=== PATIENT | male | born 1955 | race African-American/Black ===

== ENCOUNTER 2020-05-21 03:41 | Inpatient (IN) | payer OTHER ==
[2020-05-21] VITALS (16 sets, daily range): BP systolic 58–142; BP diastolic 43–95
[~2020-05-21] VITALS: Ht 172.7 cm; Wt 66.7 kg
--- NOTE | 2020-05-21 03:42 | NUR ---
ALANIS 85 FROM [facility] FOR REOPENED SCALP LACERATION W/ STAPLE S/P FOUND ON THE FLOOR; pt to bed 5, pt alert, -sob, +trache, on cool aerosol, nad noted +bleeding on laceration site, vss. pending er provider marium
--- NOTE | 2020-05-21 03:55 | NUR ---
pt taken to ct
--- NOTE | 2020-05-21 05:29 | NUR ---
DR. DENG CALLED LEFT VOICEMAIL
[2020-05-21] MEDS ORDERED: IV NS 0.9% 500 ML BAG IV ONE (05:30)
[2020-05-21 05:58] LABS: BASOPHILS % (AUTO) 0.3 % (0.0-2.0); EOSINOPHILS % (AUTO) 0.2 % (0.0-6.0); HEMATOCRIT 35 % (39-51); HEMOGLOBIN 10.4 g/dL (13.5-17.5); LYMPHOCYTES # (AUTO) 1.7 /CMM (0.8-4.8); LYMPHOCYTES % (AUTO) 15.6 % (20.0-44.0); MEAN CORPUSCULAR HGB CONC 30 g/dl (31.0-36.0); MEAN CORPUSCULAR VOLUME 81 fL (80-96); MONOCYTES # (AUTO) 0.9 /CMM (0.1-1.30); MONOCYTES % (AUTO) 8.2 % (2.0-12.0); NEUTROPHILS # (AUTO) 8.3 /CMM (1.8-8.9); NEUTROPHILS % (AUTO) 75.7 % (43.0-81.0); PLATELET COUNT (AUTO) 278 /CMM (150-450); RED BLOOD CELL COUNT(AUTO) 4.26 MIL/uL (4.5-6.0); WHITE BLOOD COUNT (AUTO) 10.9 K/uL (4.3-11.0)
--- NOTE | 2020-05-21 06:04 | NUR ---
DR. DENG CALLED LEFT VOICEMAIL
[2020-05-21 06:12] LABS: ALANINE AMINOTRANSFERASE 27 U/L (12-78); ALKALINE PHOSPHATASE 226 U/L (46-116); ASPARTATE AMINOTRANSFERASE 35 U/L (15-37); BILIRUBIN,DIRECT 0.4 mg/dL (0.0-0.2); BILIRUBIN,TOTAL 0.5 mg/dL (0.2-1.0); CALCIUM, SERUM 9.4 mg/dL (8.5-10.1); CARBON DIOXIDE 35 mmol/L (21-32); CHLORIDE 98 mmol/L (98-107); CREATININE 1.2 mg/dL (0.6-1.3); GLUCOSE 117 mg/dL (74-106); LIPASE 110 U/L (73-393); POTASSIUM 3.9 mmol/L (3.5-5.1); SODIUM SERUM 138 mmol/L (136-145); TOTAL PROTEIN, SERUM 8.2 g/dL (6.4-8.2); UREA NITROGEN, BLOOD 25 mg/dL (7-18)
[2020-05-21] MEDS ORDERED: LEVETIRACETAM (500MG) 500 MG/5 ML VIAL IV ONE (06:14)
[2020-05-21] MEDS ORDERED: LEVETIRACETAM (500MG) 500 MG in IV NS 0.9% 100 ML IV ONE (06:30)
--- NOTE | 2020-05-21 06:32 | NUR ---
REQUEST FOR RELEASE IF INFO WAS FAXED TO [facility]
--- NOTE | 2020-05-21 07:19 | NUR ---
report given to eugenio montanez for marimar
[2020-05-21] MEDS ORDERED: PROTHROMBIN COMPLEX CONCENTR 500 UNIT VIAL IV ONE (07:30)
--- NOTE | 2020-05-21 07:45 | NUR ---
patient resting in bed, responsive to tactile stimuli, moving around. Vitals stable.
[2020-05-21] MEDS ORDERED: LEVETIRACETAM (500MG) 500 MG in IV NS 0.9% 100 ML IV SCH (08:00)
--- NOTE | 2020-05-21 08:09 | NUR ---
[facility] OFFICE, WILL CALL BACK TO SPEAK TO DR. LIANG
--- NOTE | 2020-05-21 08:13 | NUR ---
PT COVID TEST RESULT: NEGATIVE
--- NOTE | 2020-05-21 08:51 | NUR ---
ROOM VOVSETAL=[id number]
--- NOTE | 2020-05-21 09:21 | NUR ---
SPOKE WITH [facility]IN[facility]ORATORY AIDE, RECEIVED A VERBAL AUTHORIZATION FOR PATIENT TO STAY.
--- NOTE | 2020-05-21 09:24 | NUR ---
ATTEMPTED TO GIVE REPORT TO ICU, STS NURSE IS NOT AVAILABLE FOR REPORT.
--- NOTE | 2020-05-21 09:41 | NUR ---
REPORT GIVEN TO CALVIN PENA.
--- NOTE | 2020-05-21 10:00 | NUR ---
RN OPENING NOTES PATIENT BROUGHT UP FROM ER VIA GURNEY. PATIENT IN STABLE CONDITION AT THE MOMENT. REPORT RECEIVED FROM JEAN KUMAR. PATIENT ADMITTED FOR SUBDURAL HEMATOMA CAUSED BY A FALL. NO SIGNS AND SYMPTOMS OF A STROKE NOTED. PATIENT IS ON 5L O2 VIA TRACH COLLAR, TOLERATING WELL, O2 SATURATION AT 100%. VITAL SIGNS ARE STABLE, BP 111/88, TEMP OF 97.5, A FIB ON THE MONITOR WITH HR OF 95, RESPIRATIONS 16, EVEN AND UNLABORED. PATIENT IS A/O X1, OPENS EYES, NON VERBAL, PER FAMILY THIS IS PATIENTS BASELINE. PATIENT HAS A G-TUBE, INTACT, PATENT, AND FLUSHED WELL. HERNIA NOTED ON PATIENTS ABDOMEN, MD IS AWARE. SKIN ISSUES ARE NOTED AND DOCUMENTED IN THE ADMISSION PACKET, PATIENT IS CURRENTLY KEPT NPO. NO FEEDING RUNNING AT THE MOMENT. IV ACCESS ON LFA #18 AND RFA #20, INTACT, PATENT AND FLUSHES WELL, NO SIGNS OF INFILTRATION NOTED. PATIENT SAFETY IS MAINTAINED, CALL LIGHT WITHIN REACH, FALL RISK MEASURES IN PLACE, BED LOCKED LOWERED AND ARMED. WILL CONTINUE TO MONITOR CLOSELY.
--- NOTE | 2020-05-21 10:04 | NUR ---
PATIENT TRANSFERRED TO ROOM 259 VIA ACLS PROTOCOL, ENDORSED TO CALVIN PENA.
[2020-05-21] MEDS ORDERED: MAGN400O6 GT (10:12)
[2020-05-21] MEDS ORDERED: ALBU6.7H9 IH (10:12)
[2020-05-21] MEDS ORDERED: POLY17PO4 GT (10:12)
[2020-05-21] MEDS ORDERED: DOCU-141 GT (10:12)
[2020-05-21] MEDS ORDERED: FERR325T23 GT (10:12)
[2020-05-21] MEDS ORDERED: ALBU8.5H8 INH (10:12)
[2020-05-21] MEDS ORDERED: ACET325T53 GT (10:12)
[2020-05-21] MEDS ORDERED: NA P133E RC (10:12)
[2020-05-21] MEDS ORDERED: LACT-96 (10:12)
[2020-05-21] MEDS ORDERED: APIX5TAB GT (10:12)
[2020-05-21] MEDS ORDERED: LEVE100S GT (10:12)
[2020-05-21] MEDS ORDERED: PHEN100C4 GT (10:12)
[2020-05-21] MEDS ORDERED: MIRT15TA GT (10:12)
[2020-05-21] MEDS ORDERED: FURO-144 GT (10:12)
--- NOTE | 2020-05-21 10:50 | NUR ---
RT PT NEWLY ADMITTED W/ TRACH. PT HOOKED UP ON O2. AMBU BAG AND SPARE TRACH PLACED BEDSIDE. WILL CONTINUE TO MONITOR.
[2020-05-21] MEDS ORDERED: ACETAMINOPHEN 650 MG/20.3 ML UDC GT PRN (12:00)
--- NOTE | 2020-05-21 12:00 | NUR ---
RN NOTE SPOKE TO MD REGARDING REGARDING THE PATIENT DIAGNOSIS. ADMITTING DIAGNOSIS IS TRAUMA RELATED AND NOT A STROKE. REPEAT CT SCAN IS ORDERED FOR TOMORROW MORNING. SAFETY MAINTAINED, CALL LIGHT WITHIN REACH, WILL CONTINUE TO MONITOR CLOSELY.
[2020-05-21] MEDS ORDERED: NA PHOS,M-B/NA PHOS,DI-BA 1 EA ENEMA RC PRN (12:30)
[2020-05-21] MEDS ORDERED: MAGNESIUM HYDROXIDE 30 ML UDC GT PRN (12:30)
[2020-05-21] MEDS ORDERED: ACETAMINOPHEN 325 MG TABLET PO PRN (12:30)
[2020-05-21] MEDS ORDERED: POLYETHYLENE GLYCOL 3350 17 GM POWD.PACK GT PRN (12:30)
[2020-05-21] MEDS ORDERED: ONDANSETRON HCL/PF 4 MG/2 ML VIAL IVP PRN (12:30)
[2020-05-21] MEDS: PANTOPRAZOLE 40 MG VIAL IV SCH (12:40)
[2020-05-21] MEDS: IV NS 0.9% 1,000 ML IV PRN (12:43)
[2020-05-21] MEDS: ALBUTEROL FS 2.5 MG/0.5 ML VIAL.NEB NEB SCH ×2 (13:30→20:06)
[2020-05-21] MEDS ORDERED: ALBUTEROL FS 2.5 MG/0.5 ML VIAL.NEB NEB PRN (13:30)
--- NOTE | 2020-05-21 14:00 | NUR ---
RN NOTE PATIENT ATTEMPTED TO GET OUT OF BED, BED ALARM WENT OFF, PATIENT WAS DANGLING FEET OFF THE BED WHEN I WALKED IN TO THE ROOM. PLACED PATIENT BACK INTO THE BED, BED LOCKED, LOWERED, AND ALARM RESET. SAFETY MAINTAINED, CALL LIGHT WITHIN REACH, WILL CONTINUE TO MONITOR CLOSELY .
[2020-05-21] MEDS: FUROSEMIDE 40 MG TABLET GT SCH (16:34)
[2020-05-21] MEDS: DOCUSATE SODIUM 100 MG CAPSULE PO SCH (16:34)
--- NOTE | 2020-05-21 18:55 | NUR ---
RN NOTE PATIENT KEEPS ATTEMPTING TO GET OUT OF BED. PULLED OUT IV LINE FROM RIGHT FOREARM. PER MD ORDER, PLACED PATIENT ON BILATERAL SOFT WRIST RESTRAINTS. SAFETY MAINTAINED, PATIENT REPOSITIONED PER PROTOCOL, BED ALARM ON, CALL LIGHT WITHIN REACH, WILL MONITOR CLOSELY.
--- NOTE | 2020-05-21 18:59 | NUR ---
RN CLOSING NOTES NO ACUTE CHANGES TO PATIENT CONDITION DURING MY SHIFT. ALL PATIENT NEEDS WERE MET. REMAINED ON 5L O2 VIA TRACH PIECE. NO ACUTE CHANGES TO PATIENTS NEURO STATUS. SPOKE TO FAMILY EARLIER TO GIVE AN UPDATE. ON MONITOR WITH A FIB NOTED. G TUBE REMAINED IN PLACE, PATENT, AND FLUSHED Q4HRS. RESTRAINTS IN PLACE, ALL NEEDS ATTENDED. KEPT CLEAN AND DRY. SAFETY MAINTAINED, BED ALARM ON, CALL LIGHT WITHIN REACH, ENDORSED TO PM NURSE FOR GOLDIE.
--- NOTE | 2020-05-21 19:30 | NUR ---
RN NOTE RECEIVED PT IN BED, OPENS EYES, CONFUSED, AND DOES NOT FOLLOW COMMANDS. PATIENT IN NO S/SX OF ACUTE DISTRESS AT THIS TIME. PATIENT'S BREATHING IS EVEN AND UNLABORED. PATIENT IS ON 6 L OF OXYGEN VIA TRACH/T PIECE SHILEY#8; TOLERATING WELL, SATURATING AT 97%. PATIENT ON BEDSIDE MONITOR READING AFIB, HR 120. NOTED IV SITE ON LFA G18, PATENT AND FLUSHING WELL ,NO S/S OF INFECTION OR INFILTRATION, WITH NS AT 75 ML/HR; GTUBE INTACT, RESIDUAL AND PLACEMENT WAS CHECKED, POSITIVE FOR GASTRIC CONTENTS ON ASPIRATION, GURGLING SOUND NOTED ON AUSCULTATION. SOFT RESTRAINTS NOTED AT BILATERAL WRISTS, CIRCULATION WAS CHECKED. NPO MAINTAINED PER ORDERS. SAFETY MEASURES IMPLEMENTED PER PROTOCOL. PATIENT BED ALARM IS ON. HEAD OF BED ELEVATED. BED IS LOCKED, IN LOWEST POSITION AND SIDE RAILS UP. CALL LIGHT WITHIN REACH OF THE PATIENT. WILL CONTINUE TO MONITOR AND REASSESS FOR ANY CHANGES.
[2020-05-21] MEDS: LEVETIRACETAM (500MG) 500 MG in IV NS 0.9% 100 ML IV SCH (20:45)
--- NOTE | 2020-05-21 21:29 | NUR ---
RT NOTE PT RECEIVED ON TRACH COLLAR 5LPM. PLACED PT ON T-PIECE @ 5LPM WITH HUMIDIFIER. HHN TX GIVEN INLINE, NO ADVERSE REACTIONS NOTED. SX DONE, TRACH SECURED VIA TRACH TIE. NO DISTRESS NOTED. WILL CONTINUE TO MONITOR. Addendum: 05/21/20 at 2131 by BRIAN BURNS RT Amended: Links added.
[2020-05-21] MEDS ORDERED: MIRTAZAPINE 15 MG TABLET GT SCH (22:00)
[2020-05-21] MEDS ORDERED: PHENYTOIN EXTENDED RELEASE 100 MG CAPSULE PO SCH (22:00)
[2020-05-22] VITALS (30 sets, daily range): BP systolic 93–154; BP diastolic 32–92
[2020-05-22] MEDS: ALBUTEROL FS 2.5 MG/0.5 ML VIAL.NEB NEB SCH ×3 (01:52→13:30)
[2020-05-22] MEDS: IV NS 0.9% 1,000 ML IV PRN (02:34)
[2020-05-22 04:38] LABS: BASOPHILS % (AUTO) 0.4 % (0.0-2.0); EOSINOPHILS % (AUTO) 1.3 % (0.0-6.0); HEMATOCRIT 28 % (39-51); HEMOGLOBIN 8.6 g/dL (13.5-17.5); LYMPHOCYTES # (AUTO) 2.5 /CMM (0.8-4.8); LYMPHOCYTES % (AUTO) 37.9 % (20.0-44.0); MEAN CORPUSCULAR HGB CONC 31 g/dl (31.0-36.0); MEAN CORPUSCULAR VOLUME 81 fL (80-96); MONOCYTES # (AUTO) 0.5 /CMM (0.1-1.30); MONOCYTES % (AUTO) 8.3 % (2.0-12.0); NEUTROPHILS # (AUTO) 3.4 /CMM (1.8-8.9); NEUTROPHILS % (AUTO) 52.1 % (43.0-81.0); PLATELET COUNT (AUTO) 230 /CMM (150-450); RED BLOOD CELL COUNT(AUTO) 3.42 MIL/uL (4.5-6.0); WHITE BLOOD COUNT (AUTO) 6.5 K/uL (4.3-11.0)
[2020-05-22 05:09] LABS: CALCIUM, SERUM 8.7 mg/dL (8.5-10.1); POTASSIUM 3.6 mmol/L (3.5-5.1)
--- NOTE | 2020-05-22 07:17 | NUR ---
RN CLOSING NOTE PATIENT REMAINS IN ROOM. NO SIGNS OF RESPIRATORY DISTRESS. GTUBE INTACT, PLACEMENT WAS CHECKED, NPO MAINTAINED. SOFT RESTRAINTS AT BILATERAL WRISTS IN PLACE, CIRCULATION WAS CHECKED PER PROTOCOL. ASPIRATION AND FALL PRECAUTIONS MAINTAINED. SAFETY MEASURES IMPLEMENTED, BED IN LOWEST POSITION, LOCKED, SIDE RAILS UP, CALL LIGHT WITHIN REACH. ALL NEEDS AND ORDERS ADDRESSED DURING THE SHIFT. ALL DUE MEDS GIVEN ORDERED & SCHEDULED. PATIENT KEPT CLEAN AND COMFORTABLE WITHIN THE SHIFT. ENDORSED TO AM SHIFT RN FOR CONTINUATION OF CARE.
--- NOTE | 2020-05-22 08:00 | NUR ---
received pt from ditch rider, alert, does not follow commands, non communicative, A fib controlled, on T piece at 28% fi02 sat well, GT clamped, condom cath, v/s stable, no pain, pt turned and repositioned.
[2020-05-22] MEDS: FUROSEMIDE 40 MG TABLET GT SCH ×2 (08:10→16:22)
[2020-05-22] MEDS: DOCUSATE SODIUM 100 MG CAPSULE PO SCH ×2 (08:10→16:22)
[2020-05-22] MEDS: PANTOPRAZOLE 40 MG VIAL IV SCH (08:10)
[2020-05-22] MEDS: LEVETIRACETAM (500MG) 500 MG in IV NS 0.9% 100 ML IV SCH (08:18)
[2020-05-22] MEDS ORDERED: FERROUS SULFATE (325 MG) 325 MG/TAB TABLET GT SCH (09:00)
[2020-05-22] MEDS ORDERED: JEVITY 1.2 CAL 1,000 ML BOTTLE GT PRN (13:00)
--- NOTE | 2020-05-22 16:10 | NUR ---
pt is resting in the bed, A fib, on 5L 02, sat well, tolerates tube feeding, condom cath good output, v/s stable, no pain, awaiting for paramedics spanish moss picker.
--- NOTE | 2020-05-22 17:10 | NUR ---
pt transferred to [facility] by paramedics, d/c instruction and package with all paper work given to paramedics since pt is unable due to neuro status, v/s stable, no pain, report given to Saúl - JEAN in [facility].
== END 2020-05-22 17:15 | DRG 55 ==
LOC: ER 03:43 → ICUOV2 09:24 → ICU 09:34
PROVIDERS: ADMIT Legal Medicine; ATTEND Legal Medicine
DX: S06.5X0A Traumatic subdural hemorrhage without loss of consciousness, initial encounter (principal); S01.00XA Unspecified open wound of scalp, initial encounter; W18.30XA Fall on same level, unspecified, initial encounter; Y92.89 Other specified places as the place of occurrence of the external cause; Y99.8 Other external cause status; G93.1 Anoxic brain damage, not elsewhere classified; I50.32 Chronic diastolic (congestive) heart failure
CPT/HCPCS: 31720; 36415; 70450-TC; 71045-TC; 80048-TC; 80076-TC; 80185-TC; 83690-TC; 84484-TC; 85025-TC; 85730-TC; 86850-TC; 87081-TC; 94640-TC; 94799-TC; A4349; A4623; C9113; C9132; C9803-CS; G0378; J1953; J7030; J7040